=== PATIENT | female | born 1945 | race Caucasian/White ===

== ENCOUNTER 2018-07-14 11:15 | Day surgery (SDC) | payer MEDICARE, OTHER ==
[2018-07-14] MEDS ORDERED: LIDOCAINE 1% W/EPI 1:200,000 MPF 30ML SQ ONE (13:44)
--- NOTE | 2018-07-15 08:40 | Operative Note ---
DATE OF SURGERY: 07/14/2018 PREOPERATIVE DIAGNOSIS: Left trigger thumb. POSTOPERATIVE DIAGNOSIS: Left trigger thumb. OPERATION: Left trigger thumb release. Staff Surgeon: Jovon Briones MD Anesthesia: Local. Preparation: Chloraprep. Individual Considerations: None. PROCEDURE: The patient was taken to the operating room and placed supine on the operating room table. Her left hand was prepped and draped in the usual fashion. The patient had 1% lidocaine with epinephrine infiltrated over the A1 sana of the thumb. The limb was elevated. Tourniquet was inflated to 250 mmHg. Sharp dissection carried down just through skin. Blunt dissection carried down to the top of the sana. The neurovascular bundles were retracted on either side. A neck was made and under direct view, it was released proximally and distally. I had her flex her thumb, and it would no longer trigger. Tourniquet was let down and hemostasis was obtained with compression. The skin was approximated with 4-0 nylon in a vertical mattress fashion. A sterile bulky compressive dressing was applied. The patient tolerated procedure well. Needle and sponge counts were correct. Estimated blood loss was minimal. She was taken back to recovery in good condition. There were no complications. LIANNA
== END 2018-07-14 14:14 | disposition home or self-care (01) ==
LOC: SUR 11:15
PROVIDERS: ATTEND Orthopaedic Surgery
DX: M65.312 Trigger thumb, left thumb (principal); I10 Essential (primary) hypertension